=== PATIENT | female | born 1980 | race Caucasian/White ===

== ENCOUNTER 2016-06-17 12:52 | Inpatient (IN) | payer MEDICAID ==
[~2016-06-17] VITALS: Ht 165.1 cm; Wt 123.7 kg
[~2016-06-17 12:52] MED LIST: LAMO100T5 PO; LITH300T3 PO; PROP40TA PO; QUET100T PO
[2016-06-17] MEDS ORDERED: SODIUM CHLORIDE 0.9% 1,000 ML IV ONE (14:15)
[2016-06-17] MEDS ORDERED: SODIUM CHLORIDE 0.9% 1,000ML IVBOLUS ONE ×2 (14:30→15:00)
[2016-06-17] MEDS ORDERED: ONDANSETRON 2MG/ML, 2ML IVPush ONE (14:30)
[2016-06-17] MEDS ORDERED: LORazepam 2 MG/ML, 1ML IVPush ONE (14:30)
[2016-06-17] MEDS ORDERED: SODIUM CHLORIDE FLUSH 10ML SYR IVF ONE (14:30)
[2016-06-17] MEDS ORDERED: ONDANSETRON 2MG/ML, 2ML ONE (14:37)
[2016-06-17] MEDS ORDERED: LORazepam 2 MG/ML, 1ML ONE (14:37)
[2016-06-17 14:58] LABS: BLOOD UREA NITROGEN 33 mg/dL (7-18)
[2016-06-17 15:02] LABS: DAU SCREEN DISCLAIMER
[2016-06-17 15:05] LABS: ASPARTATE AMINO TRANSFERASE 39 U/L (15-37)
[2016-06-17 15:07] LABS: ACETAMINOPHEN < 3 mcg/mL (10-30)
[2016-06-17 15:21] LABS: PATH.CAST-FLAG NOT PRESENT; SPERM-FLAG NOT PRESENT; SRC-FLAG NOT PRESENT; XTAL-FLAG NOT PRESENT; YLC-FLAG NOT PRESENT
[2016-06-17 15:28] LABS: DIFF TOTAL CELLS COUNTED 100 CELL DIFF
[2016-06-17 15:30] LABS: VERIFY COUNTS? YES
[2016-06-17] MEDS ORDERED: POTASSIUM CHLORIDE 20 MEQ TAB.ER.PRT PO ONE (15:30)
[2016-06-17 15:31] LABS: MONOS WITH VACUOLES 1+
[2016-06-17] MEDS ORDERED: POTASSIUM CHLORIDE 20 MEQ TAB.ER.PRT ONE (15:33)
[2016-06-17] MEDS ORDERED: CEFTRIAXONE PMX 1GM/50ML 50 ML IVPB ONE (16:00)
[2016-06-17] MEDS ORDERED: CEFTRIAXONE PMX 1GM/50ML 50 ML ONE (16:21)
[2016-06-17] MEDS ORDERED: POTASSIUM CHLORIDE 20 MEQ in SODIUM CHLORIDE 0.9% 1,000 ML IV ONE (16:21)
[2016-06-17] MEDS ORDERED: SODIUM CHLORIDE FLUSH 10ML SYR IVF PRN (16:30)
[2016-06-17] MEDS ORDERED: ONDANSETRON 2MG/ML, 2ML IVP PRN (17:00)
[2016-06-17] MEDS ORDERED: PHARMACY MAY ADJ FOR RENAL FX MC PRN (17:00)
[2016-06-17] MEDS ORDERED: MORPHINE SULFATE 4 MG/ML, 1ML IVPush PRN (17:00)
[2016-06-17] MEDS ORDERED: POLYETHYLENE GLYCOL 17 GM PACKET PO PRN (17:00)
[2016-06-17] MEDS ORDERED: LORazepam 2 MG/ML, 1ML IVPush PRN (17:00)
[2016-06-17] MEDS ORDERED: DOCUSATE 100 MG CAPSULE PO PRN (17:00)
[2016-06-17] MEDS ORDERED: hydrALAzine 20 MG/ML, 1ML IV PRN (17:30)
[2016-06-17] MEDS: NS + 20MEQ KCL 1,000 ML IV SCH (18:46)
[2016-06-17 18:59] VITALS: BP 148/86
[2016-06-17] MEDS ORDERED: ALBUTEROL SULFATE 2.5 MG/3 ML ONE (20:50)
[2016-06-17] MEDS ORDERED: ALBUTEROL SULFATE 2.5 MG/3 ML NPPB PRN (21:30)
[2016-06-17] MEDS: ALBUTEROL/IPRATROPIUM 2.5MG/0.5MG, 3 ML NPPB SCH (22:00)
[2016-06-17] MEDS: NICOTINE 21 MG/24 HR PATCH.TD24 TD SCH (22:04)
[2016-06-17] MEDS: HEPARIN 5,000 UNITS/ML, 1ML SQ SCH (22:04)
[2016-06-17] MEDS: HYDROcodone/APAP 5/325 TABLET PO PRN (22:27)
[2016-06-18 00:20] VITALS: BP 97/61
[2016-06-18 05:00] LABS: ASPARTATE AMINO TRANSFERASE 27 U/L (15-37); BLOOD UREA NITROGEN 26 mg/dL (7-18)
[2016-06-18] MEDS: NS + 20MEQ KCL 1,000 ML IV SCH ×3 (05:09→22:47)
[2016-06-18] MEDS: CEFTRIAXONE PMX 2GM/50ML 50 ML IV SCH (05:09)
[2016-06-18] MEDS: ALBUTEROL/IPRATROPIUM 2.5MG/0.5MG, 3 ML NPPB SCH ×5 (06:30→22:21)
[2016-06-18 06:31] LABS: DIFF TOTAL CELLS COUNTED 100 CELL DIFF
[2016-06-18 06:33] LABS: VERIFY COUNTS? YES
[2016-06-18] MEDS: HEPARIN 5,000 UNITS/ML, 1ML SQ SCH ×3 (06:58→22:41)
[2016-06-18 07:10] VITALS: BP 132/77
[2016-06-18] MEDS: POTASSIUM CHLORIDE 20 MEQ TAB.ER.PRT PO SCH ×2 (10:19→17:34)
[2016-06-18] MEDS: QUETIAPINE 25MG TABLET PO SCH ×2 (12:51→21:29)
[2016-06-18 13:25] VITALS: BP 114/74
[2016-06-18 18:50] VITALS: BP 99/65
[2016-06-18] MEDS: HYDROcodone/APAP 5/325 TABLET PO PRN (21:28)
[2016-06-18] MEDS: PROPRANOLOL 20 MG TABLET PO SCH (21:29)
[2016-06-18] MEDS: LAMOTRIGINE 200 MG TABLET PO SCH (21:29)
[2016-06-18] MEDS: QUETIAPINE 100MG TABLET PO SCH (21:30)
[2016-06-18] MEDS: NICOTINE 21 MG/24 HR PATCH.TD24 TD SCH (22:41)
[2016-06-19 01:18] VITALS: BP 108/67
[2016-06-19] MEDS: CEFTRIAXONE PMX 2GM/50ML 50 ML IV SCH (04:42)
[2016-06-19 05:41] LABS: DIFF TOTAL CELLS COUNTED 100 CELL DIFF
[2016-06-19 05:43] LABS: VERIFY COUNTS? YES
[2016-06-19 05:44] LABS: ANISOCYTOSIS 1+; POLYCHROMASIA 1+
[2016-06-19] MEDS: ALBUTEROL/IPRATROPIUM 2.5MG/0.5MG, 3 ML NPPB SCH ×2 (06:00→10:50)
[2016-06-19] MEDS: HEPARIN 5,000 UNITS/ML, 1ML SQ SCH ×3 (06:21→21:40)
[2016-06-19 07:27] LABS: BLOOD UREA NITROGEN 17 mg/dL (7-18)
[2016-06-19 07:30] LABS: ASPARTATE AMINO TRANSFERASE 20 U/L (15-37)
[2016-06-19 07:34] VITALS: BP 115/72
[2016-06-19] MEDS: POTASSIUM CHLORIDE 20 MEQ TAB.ER.PRT PO SCH (08:37)
[2016-06-19] MEDS: PROPRANOLOL 20 MG TABLET PO SCH ×2 (08:38→21:41)
[2016-06-19] MEDS: QUETIAPINE 25MG TABLET PO SCH ×2 (08:38→21:41)
[2016-06-19] MEDS: LACTATED RINGERS 1,000 ML IV SCH ×2 (08:43→23:50)
[2016-06-19] MEDS: HYDROcodone/APAP 5/325 TABLET PO PRN ×2 (11:09→21:41)
[2016-06-19 14:36] VITALS: BP 124/82
[2016-06-19 20:17] VITALS: BP 128/77
[2016-06-19] MEDS: NICOTINE 21 MG/24 HR PATCH.TD24 TD SCH (21:39)
[2016-06-19] MEDS: QUETIAPINE 100MG TABLET PO SCH (21:40)
[2016-06-19] MEDS: LAMOTRIGINE 200 MG TABLET PO SCH (21:41)
[2016-06-20 02:54] VITALS: BP 102/66
[2016-06-20] MEDS: CEFTRIAXONE PMX 2GM/50ML 50 ML IV SCH (03:33)
[2016-06-20] MEDS: HEPARIN 5,000 UNITS/ML, 1ML SQ SCH ×3 (05:57→21:54)
[2016-06-20 06:19] LABS: ASPARTATE AMINO TRANSFERASE 19 U/L (15-37); BLOOD UREA NITROGEN 14 mg/dL (7-18)
[2016-06-20 07:57] VITALS: BP 121/68
[2016-06-20] MEDS: PROPRANOLOL 20 MG TABLET PO SCH ×2 (08:21→21:52)
[2016-06-20] MEDS: QUETIAPINE 25MG TABLET PO SCH ×2 (08:22→21:54)
[2016-06-20 13:37] VITALS: BP 102/66
[2016-06-20] MEDS: LACTATED RINGERS 1,000 ML IV SCH (15:27)
[2016-06-20] MEDS ORDERED: LITHIUM CARBONATE 300 MG CAPSULE PO SCH (16:00)
[2016-06-20 18:59] VITALS: BP 138/82
[2016-06-20] MEDS: LAMOTRIGINE 200 MG TABLET PO SCH (21:53)
[2016-06-20] MEDS: QUETIAPINE 100MG TABLET PO SCH (21:54)
[2016-06-20] MEDS: NICOTINE 21 MG/24 HR PATCH.TD24 TD SCH (22:01)
[2016-06-21 01:17] VITALS: BP 115/73
[2016-06-21] MEDS: CEFTRIAXONE PMX 2GM/50ML 50 ML IV SCH (04:27)
[2016-06-21] MEDS: LACTATED RINGERS 1,000 ML IV SCH (05:59)
[2016-06-21] MEDS: HEPARIN 5,000 UNITS/ML, 1ML SQ SCH ×3 (06:00→20:37)
[2016-06-21] MEDS: PROPRANOLOL 20 MG TABLET PO SCH ×2 (07:35→20:36)
[2016-06-21] MEDS: QUETIAPINE 25MG TABLET PO SCH ×2 (07:35→20:36)
[2016-06-21 07:44] VITALS: BP 121/75
[2016-06-21 08:29] LABS: BLOOD UREA NITROGEN 9 mg/dL (7-18)
[2016-06-21 13:43] VITALS: BP 120/72
[2016-06-21 19:06] VITALS: BP 143/108
[2016-06-21] MEDS: LAMOTRIGINE 200 MG TABLET PO SCH (20:36)
[2016-06-21] MEDS: QUETIAPINE 100MG TABLET PO SCH (20:37)
[2016-06-21] MEDS: NICOTINE 21 MG/24 HR PATCH.TD24 TD SCH (21:05)
[2016-06-21] MEDS: ACETAMINOPHEN 325 MG TABLET PO PRN (21:05)
[2016-06-22 02:18] VITALS: BP 124/78
[2016-06-22] MEDS: CEFTRIAXONE PMX 2GM/50ML 50 ML IV SCH (04:01)
[2016-06-22] MEDS: HEPARIN 5,000 UNITS/ML, 1ML SQ SCH (04:32)
[2016-06-22] MEDS: ACETAMINOPHEN 325 MG TABLET PO PRN (04:32)
[2016-06-22 05:44] LABS: ASPARTATE AMINO TRANSFERASE 18 U/L (15-37); BLOOD UREA NITROGEN 8 mg/dL (7-18)
[2016-06-22 07:50] VITALS: BP 139/87
[2016-06-22] MEDS ORDERED: QUET100T PO (07:56)
[2016-06-22] MEDS ORDERED: QUET25TA PO (07:56)
[2016-06-22] MEDS ORDERED: LAMO200T PO (07:56)
[2016-06-22] MEDS ORDERED: PROP20TA PO (07:56)
[2016-06-22] MEDS ORDERED: CEFD300C37 PO (07:56)
[2016-06-22] MEDS: PROPRANOLOL 20 MG TABLET PO SCH (08:17)
[2016-06-22] MEDS: QUETIAPINE 25MG TABLET PO SCH (08:18)
== END 2016-06-22 10:35 | disposition home or self-care (01) | DRG 871 ==
LOC: ED 15:39 → EDIP 16:21 → 3NE 17:32 → DCLOUNGE 06-22 10:26
PROVIDERS: ADMIT Family Medicine; ATTEND Family Medicine
PROC: 0T9B70Z Drainage of Bladder with Drainage Device, Via Natural or Artificial Opening (ICD-10-PCS; principal; 2016-06-17)
DX: A41.51 Sepsis due to Escherichia coli [E. coli] (principal); G93.41 Metabolic encephalopathy; J96.00 Acute respiratory failure, unspecified whether with hypoxia or hypercapnia; N17.0 Acute kidney failure with tubular necrosis; E44.0 Moderate protein-calorie malnutrition; N10 Acute pyelonephritis; Z68.42 Body mass index [BMI] 45.0-49.9, adult; A41.9 Sepsis, unspecified organism; D64.9 Anemia, unspecified; E66.01 Morbid (severe) obesity due to excess calories; E83.52 Hypercalcemia; E87.6 Hypokalemia; R74.8 Abnormal levels of other serum enzymes; B96.20 Unspecified Escherichia coli [E. coli] as the cause of diseases classified elsewhere; G47.33 Obstructive sleep apnea (adult) (pediatric); F15.10 Other stimulant abuse, uncomplicated; F12.10 Cannabis abuse, uncomplicated; F17.210 Nicotine dependence, cigarettes, uncomplicated; F31.9 Bipolar disorder, unspecified; F41.9 Anxiety disorder, unspecified; I10 Essential (primary) hypertension; T43.591A Poisoning by other antipsychotics and neuroleptics, accidental (unintentional), initial encounter; Z80.9 Family history of malignant neoplasm, unspecified; Z91.5 Personal history of self-harm; Z79.899 Other long term (current) drug therapy; Z90.710 Acquired absence of both cervix and uterus; Z56.0 Unemployment, unspecified
CPT/HCPCS: 36415; 70450; 71010; 74176; 76770; 80048; 80053; 80178; 80307; 80329; 81001; 82140; 82607; 82746; 83540; 83550; 83605; 83735; 84100; 84145; 84439; 84443; 84703; 85025; 87040; 87077; 87086; 87186; 87491; 87591; 93005; 93306; 94640; 96361; 96374; 96375; J0696; J1644; J2405; J3480; J7620; G0480; J2060; J7030; J7120

== ENCOUNTER 2017-03-07 13:17 | Emergency (ER) | payer MEDICAID ==
[~2017-03-07] VITALS: Ht 162.6 cm; Wt 112.0 kg
[~2017-03-07 13:17] MED LIST changes: +CEFD300C37 PO; +LAMO200T2 PO; +PROP20TA PO; +QUET25TA PO
[2017-03-07 13:53] LABS: BASOPHILS # (AUTO) 0.07 x10^3/uL (0-0.1); BASOPHILS % (AUTO) 1 % (0-1); EOSINOPHILS # (AUTO) 0.34 x10^3/uL (0-0.4); EOSINOPHILS % (AUTO) 4 % (1-7); LYMPHOCYTES # (AUTO) 2.89 x10^3/uL (1-3.4); LYMPHOCYTES % (AUTO) 34 % (22-44); MD NO; MEAN CORPUSCULAR HEMOGLOBIN 31.5 pg (27.0-34.8); MEAN CORPUSCULAR HGB CONC 33.1 g/dL (32.4-35.8); MEAN PLATELET VOLUME 8.2 fL (7.4-10.4); MONOCYTES # (AUTO) 0.63 x10^3/uL (0.2-0.8); MONOCYTES % (AUTO) 8 % (2-9); NEUTROPHILS # (AUTO) 4.47 x10^3/uL (1.8-6.8); NEUTROPHILS % (AUTO) 53 % (42-75); PLATELET COUNT 311 x10^3/uL (130-400); RED BLOOD COUNT 4.76 x10^6/uL (3.82-5.3); RED CELL DISTRIBUTION WIDTH 14.6 % (9.6-15.2)
[2017-03-07] MEDS ORDERED: ASPIRIN 81 MG TABLET CHEW PO ONE (14:00)
[2017-03-07] MEDS ORDERED: SODIUM CHLORIDE FLUSH 10ML SYR IVF ONE ×2 (14:00→14:30)
[2017-03-07] MEDS ORDERED: SODIUM CHLORIDE 0.9% 1,000ML IVBOLUS ONE ×2 (14:00→14:30)
[2017-03-07 14:07] LABS: ALANINE AMINOTRANSFERASE 17 U/L (12-78); ALBUMIN 3.5 g/dL (3.4-5.0); ANION GAP 6 mmol/L (5-15); CALCIUM 8.2 mg/dL (8.5-10.1); CHLORIDE 107 mmol/L (98-107); CREATININE 0.96 mg/dL (0.55-1.02)
[2017-03-07 14:12] LABS: ALKALINE PHOSPHATASE 87 U/L (45-117); BILIRUBIN,TOTAL 0.3 mg/dL (0.2-1.0); TOTAL PROTEIN 7.6 g/dL (6.4-8.2); TROPONIN I < 0.015 ng/mL (0.000-0.045)
[2017-03-07] MEDS ORDERED: AZITHROMYCIN 500 MG in SODIUM CHLORIDE 0.9% 250 ML IVPB ONE (14:30)
[2017-03-07] MEDS ORDERED: AMOXICILLIN 500 MG CAPSULE PO ONE (14:30)
[2017-03-07] MEDS ORDERED: ASPIRIN 81 MG TABLET CHEW ONE (14:58)
[2017-03-07 16:18] LABS: CULTURE INDICATED? NO; MICROSCOPIC NOT IND
[2017-03-07 16:57] VITALS: BP 152/92
== END 2017-03-07 16:59 | disposition home or self-care (01) ==
LOC: ED 14:49
DX: J15.9 Unspecified bacterial pneumonia (principal); F15.10 Other stimulant abuse, uncomplicated; F31.9 Bipolar disorder, unspecified
CPT/HCPCS: 36415; 71045; 80053; 81003; 83605; 84484; 84703; 85025; 93005; 96365; 96366; 99285; J0456; J7030; J7050; J7512

== ENCOUNTER 2017-08-07 14:28 | Emergency (ER) | payer MEDICAID ==
[~2017-08-07] VITALS: Ht 162.6 cm; Wt 112.5 kg
[2017-08-07 15:56] LABS: BASOPHILS # (AUTO) 0.01 x10^3/uL (0-0.1); BASOPHILS % (AUTO) 0 % (0-1); EOSINOPHILS % (AUTO) 1 % (1-7); LYMPHOCYTES # (AUTO) 1.57 x10^3/uL (1-3.4); LYMPHOCYTES % (AUTO) 11 % (22-44); MD NO; MEAN CORPUSCULAR HEMOGLOBIN 31.7 pg (27.0-34.8); MEAN CORPUSCULAR HGB CONC 33.7 g/dL (32.4-35.8); MEAN CORPUSCULAR VOLUME 94.1 fL (80-100); MEAN PLATELET VOLUME 8.4 fL (7.4-10.4); MONOCYTES # (AUTO) 0.37 x10^3/uL (0.2-0.8); MONOCYTES % (AUTO) 3 % (2-9); NEUTROPHILS # (AUTO) 11.64 x10^3/uL (1.8-6.8); NEUTROPHILS % (AUTO) 84 % (42-75); PLATELET COUNT 260 x10^3/uL (130-400); RED BLOOD COUNT 4.62 x10^6/uL (3.82-5.3); RED CELL DISTRIBUTION WIDTH 14.5 % (9.6-15.2)
[2017-08-07 16:06] LABS: ALANINE AMINOTRANSFERASE 17 U/L (12-78); ALBUMIN 3.6 g/dL (3.4-5.0); ANION GAP 7 mmol/L (5-15); CALCIUM 8.7 mg/dL (8.5-10.1); CHLORIDE 108 mmol/L (98-107); CREATININE 1.13 mg/dL (0.55-1.02)
[2017-08-07 16:08] LABS: ALKALINE PHOSPHATASE 78 U/L (45-117); BILIRUBIN,TOTAL 0.8 mg/dL (0.2-1.0); TOTAL PROTEIN 7.8 g/dL (6.4-8.2)
[2017-08-07 16:16] LABS: CULTURE INDICATED? YES; MICROSCOPIC INDICATED
[2017-08-07] MEDS ORDERED: KETOROLAC 30 MG/1 ML IM ONE (16:30)
[2017-08-07] MEDS ORDERED: CEFTRIAXONE 1,000 MG IM ONE (17:00)
[2017-08-07] MEDS ORDERED: CEFTRIAXONE 1,000 MG ONE (17:09)
[2017-08-07] MEDS ORDERED: KETOROLAC 30 MG/1 ML ONE (17:09)
[2017-08-07 17:18] VITALS: BP 149/91
== END 2017-08-07 17:25 | disposition home or self-care (01) ==
LOC: ED 17:05
DX: N10 Acute pyelonephritis (principal); F17.210 Nicotine dependence, cigarettes, uncomplicated
CPT/HCPCS: 36415; 80053; 81001; 83690; 85025; 87077; 87086; 96372; 99284; J0696; J1885; 87186